=== PATIENT | female | born 1975 | race American Indian/Alaskan Native ===

== ENCOUNTER 2018-04-06 10:08 | Emergency (ER) | payer SELFPAY ==
[2018-04-06] MEDS ORDERED: CATAPRES PO ONE (11:49)
[2018-04-06] MEDS ORDERED: FIORICET PO ONE (11:50)
--- NOTE | 2018-04-06 11:56 | Emergency Department Report ---
ED Headache HPI - General Chief Complaint: Headache Stated Complaint: DIZZINESS/HEADACHE Time Seen by Provider: 04/06/18 11:42 Source: patient, family Exam Limitations: no limitations - History of Present Illness Initial Comments: 42-year-old female presents to ED with complaints of headache. Patient has history of hypertension, has been noncompliant with medication x7 months. States she was taking HCTZ and metoprolol. She also reports history of migraine headaches even when on BP meds. Patient reports intermittent headaches for the last 7 months. Has been taking Excedrin for pain. Windy made her come to the ED today for evaluation. States headache is no different from previous. Associated with dizziness and paresthesias. Denies nausea, vomiting, fever. Timing/Duration: other (7 months) Quality: moderate Recent Head Trauma: no recent headache/trauma, chronic headaches Associated Symptoms: denies: fever/chills, nausea/vomiting, stiff neck, vision changes, weakness Allergies/Adverse Reactions: Allergies No Known Allergies Allergy (Unverified 04/06/18 10:21) Home Medications: Ambulatory Orders Butalb/Acetamin/Caff 50-325-40 [Fioricet] 1 tab PO Q6HR PRN #10 tab 04/06/18 Metoprolol [Lopressor TAB] 50 mg PO BID #60 tablet 04/06/18 hydroCHLOROthiazide [HCTZ] 25 mg PO QDAY #30 tablet 04/06/18 ED Review of Systems ROS: Stated complaint: DIZZINESS/HEADACHE Other details as noted in HPI Comment: All other systems reviewed and negative Constitutional: denies: chills, fever Respiratory: denies: shortness of breath Cardiovascular: denies: chest pain Gastrointestinal: denies: nausea, vomiting Neurological: headache, paresthesias, other (reports dizziness) ED Past Medical Hx - Past Medical History Previous Medical History?: Yes Hx Hypertension: Yes - Surgical History Past Surgical History?: Yes Additional Surgical History: - Social History Smoking Status: Never Smoker Substance Use Type: None - Medications Home Medications: Home Medications Medication Instructions Recorded Confirmed Last Taken Type Butalb/Acetamin/Caff 50-325-40 1 tab PO Q6HR PRN #10 tab 04/06/18 Unknown Rx [Fioricet] Metoprolol [Lopressor TAB] 50 mg PO BID #60 tablet 04/06/18 Unknown Rx hydroCHLOROthiazide [HCTZ] 25 mg PO QDAY #30 tablet 04/06/18 Unknown Rx ED Physical Exam - General Limitations: No Limitations General appearance: alert, in no apparent distress - Head Head exam: Present: atraumatic, normocephalic - Eye Eye exam: Present: normal appearance, EOMI - ENT ENT exam: Present: mucous membranes moist - Neck Neck exam: Present: normal inspection. Absent: meningismus - Respiratory Respiratory exam: Present: normal lung sounds bilaterally. Absent: respiratory distress - Cardiovascular Cardiovascular Exam: Present: regular rate, normal rhythm - GI/Abdominal GI/Abdominal exam: Present: soft. Absent: tenderness - Extremities Exam Extremities exam: Present: normal inspection - Neurological Exam Neurological exam: Present: alert, oriented X3, CN II-XII intact, motor sensory deficit - Psychiatric Psychiatric exam: Present: normal affect, normal mood - Skin Skin exam: Present: warm, dry, intact, normal color ED Course Vital Signs 04/06/18 04/06/18 10:21 13:14 Temperature 98.4 F 98.4 F Pulse Rate 82 72 Respiratory 20 18 Rate Blood Pressure 170/103 Blood Pressure 143/87 [Right] O2 Sat by Pulse 99 99 Oximetry ED Medical Decision Making - Lab Data Result diagrams: 04/06/18 11:59 04/06/18 11:59 - Radiology Data Radiology results: report reviewed, image reviewed - Medical Decision Making Blood pressure and headache improved. No neuro deficits. CT head and labs unremarkable. Creatinine normal. Will restart BP meds and prescribed Fioricet for headaches. Outpatient follow-up information provided. - Differential Diagnosis essential HTN, hypertensive emergency, migraine ROBLERO, CVA Critical care attestation.: If time is entered above; I have spent that time in minutes in the direct care of this critically ill patient, excluding procedure time. ED Disposition Clinical Impression: Essential hypertension, Headache Disposition: DC-01 TO HOME OR SELFCARE Is pt being admited?: No Condition: Stable Instructions: Hypertension (ED) Prescriptions: Butalb/Acetamin/Caff 50-325-40 [Fioricet] 1 tab PO Q6HR PRN #10 tab PRN Reason: Headache hydroCHLOROthiazide [HCTZ] 25 mg PO QDAY #30 tablet Metoprolol [Lopressor TAB] 50 mg PO BID #60 tablet Referrals: [facility] [Provider Group] - 3-5 Days [facility] [Outside] - 3-5 Days PERCY SHAVER MD [Staff Physician] - 3-5 Days Time of Disposition: 13:29
[2018-04-06 12:14] LABS: Basophils # (Auto) 0.1 K/mm3 (0.0-0.1); Basophils % (Auto) 1.1 % (0.0-1.8); Eosinophils # (Auto) 0.4 K/mm3 (0.0-0.4); Eosinophils % (Auto) 4.6 % (0.0-4.3); Hematocrit 41.2 % (30.3-42.9); Lymphocytes # (Auto) 3.4 K/mm3 (1.2-5.4); Lymphocytes % (Auto) 36.7 % (13.4-35.0); Mean Corpuscular HGB Conc 34 % (30-34); Mean Corpuscular Hemoglobin 28 pg (28-32); Mean Corpuscular Volume 83 fl (79-97); Monocytes # (Auto) 0.7 K/mm3 (0.0-0.8); Monocytes % (Auto) 7.3 % (0.0-7.3); Platelet Count 303 K/mm3 (140-440); Red Blood Count 4.97 M/mm3 (3.65-5.03); Red Cell Distribution Width 13.9 % (13.2-15.2)
[2018-04-06 12:25] LABS: HCG Qualitative,Urine Negative (Negative)
[2018-04-06 12:27] LABS: BUN/Creatinine Ratio 8; Blood Urea Nitrogen 8 mg/dL (7-17); Calcium 8.9 mg/dL (8.4-10.2); Hemolysis Index 10
[2018-04-06 12:30] LABS: Bilirubin,Urine NEG (Negative); Blood,Urine LG (Negative); Color,Urine Red (Yellow); Mucus,Urine FEW /HPF; Urobilinogen,Urine < 2.0 mg/dL (<2.0)
[2018-04-06 12:31] LABS: RBC,Urine > 182.0 /HPF (0.0-6.0)
--- NOTE | 2018-04-06 13:05 | Cat Scan Report ---
FINAL REPORT EXAM: CT HEAD/BRAIN WO CON HISTORY: headache TECHNIQUE: CT examination of the head without IV contrast PRIORS: None. FINDINGS: No acute air-fluid level visualized in the included air-filled sinuses. Bone windows demonstrate no acute fracture. The brain is without mass, mass effect, hemorrhage, or acute infarct. There is no extra-axial intracranial bleed, brain bleed, or midline shift. The ventricles and sulci are age-appropriate. IMPRESSION: No acute CVA, intracranial bleed, or brain mass
[2018-04-06 13:15] VITALS: BP 143/87
== END 2018-04-06 13:42 | disposition home or self-care (01) ==
LOC: ED 10:08
DX: I10 Essential (primary) hypertension (principal)
CPT/HCPCS: 36415; 70450; 80048; 81001; 81025; 85025; 99284

== ENCOUNTER 2018-11-05 19:30 | Emergency (ER) | payer SELFPAY ==
--- NOTE | 2018-11-05 20:40 | Emergency Department Report ---
Chief Complaint: Headache Stated Complaint: ROBLERO X 2 WKS/DIZZINESS/NAUSEA Time Seen by Provider: 11/05/18 20:38 - HPI History of Present Illness: pt presents with a frontal ROBLERO that began two weeks ago has a hx of migraines takes excedrin migraine (+) nausea no emesis (+) photophobia BP elevated in triage PMHx HTN, has not been taking her medications, last took her med in Jul 2018 states she ran out of her meds pt is supposed to be taking lisinopril-hctz non smoker non drinker no drug use MSE screening note: Focused history and physical exam performed. Due to findings the following was ordered: labs, UA
[2018-11-05 20:41] VITALS: BP 186/114
[2018-11-05 21:04] LABS: Basophils # (Auto) 0.1 K/mm3 (0.0-0.1); Basophils % (Auto) 0.6 % (0.0-1.8); Eosinophils # (Auto) 0.3 K/mm3 (0.0-0.4); Eosinophils % (Auto) 2.9 % (0.0-4.3); Hematocrit 44.4 % (30.3-42.9); Hemoglobin 15.1 gm/dl (10.1-14.3); Lymphocytes # (Auto) 3.6 K/mm3 (1.2-5.4); Lymphocytes % (Auto) 35.9 % (13.4-35.0); Mean Corpuscular HGB Conc 34 % (30-34); Mean Corpuscular Volume 82 fl (79-97); Monocytes # (Auto) 0.5 K/mm3 (0.0-0.8); Monocytes % (Auto) 5.2 % (0.0-7.3); Platelet Count 368 K/mm3 (140-440); Red Blood Count 5.42 M/mm3 (3.65-5.03); Red Cell Distribution Width 13.5 % (13.2-15.2)
[2018-11-05 21:19] LABS: BUN/Creatinine Ratio 10; Blood Urea Nitrogen 10 mg/dL (7-17); Calcium 9.6 mg/dL (8.4-10.2); Hemolysis Index 19
[2018-11-05 21:46] LABS: Bilirubin,Urine NEG (Negative); Blood,Urine NEG (Negative); Color,Urine Yellow (Yellow); Mucus,Urine 1+ /HPF; Protein,Urine <15 mg/dL mg/dL (Negative); Urobilinogen,Urine < 2.0 mg/dL (<2.0)
[2018-11-05 21:47] LABS: HCG Qualitative,Urine Negative (Negative)
== END 2018-11-05 22:02 | disposition left against medical advice (07) ==
LOC: ED 19:30
DX: R42 Dizziness and giddiness (principal); Z53.21 Procedure and treatment not carried out due to patient leaving prior to being seen by health care provider
CPT/HCPCS: 36415; 80048; 81001; 81025; 85025